=== PATIENT | female | born 1940 | race Asian ===

== ENCOUNTER 2017-06-26 06:56 | Emergency (ER) | payer MEDICARE, OTHER ==
[~2017-06-26] VITALS: Ht 162.6 cm; Wt 86.4 kg
[~2017-06-26 06:56] MED LIST: ALBU8HFA IH; ASPI-556 PO; AUD NEB; INSLAN SQ; MECL-111 PO; METO50 PO; MULT-950 PO; NATE120 PO; NIFE10 PO; RANI150T7 PO; TELM40 PO
[2017-06-26] MEDS ORDERED: IPRATROPIUM BROMIDE 0.5 MG/2.5 ML NEB SOLUTION NEB ONE (07:00)
[2017-06-26] MEDS ORDERED: ALBUTEROL SULFATE 2.5 MG/0.5 ML NEB SOLUTION NEB ONE (07:00)
[2017-06-26 07:07] LABS: GLUCOSE,POINT OF CARE 65 MG/DL (70-110)
[2017-06-26] MEDS ORDERED: RAPID SEQUENCE KIT [RSI] 1 EACH KIT ONE (07:39)
[2017-06-26] MEDS ORDERED: SUCCINYLCHOLINE CHLORIDE 20 MG/ML 10 ML VIAL ONE (07:39)
[2017-06-26] MEDS ORDERED: PROPOFOL 1000 MG/ISO-OSM 100 ML IV ONE (08:31)
[2017-06-26 08:59] LABS: BASOPHILS % (AUTO) 0.7 % (0.0-2.0); HEMATOCRIT 31.5 % (36-46); HEMOGLOBIN 10.3 g/dL (12.0-16.0); LYMPHOCYTES # (AUTO) 0.6 K/uL (1.0-4.8); LYMPHOCYTES % (AUTO) 9.4 % (22.0-44.0); MEAN CORPUSCULAR HEMOGLOBIN 28.3 pg (26.0-34.0); MEAN CORPUSCULAR HGB CONC 32.7 G/dL (31.0-37.0); MEAN CORPUSCULAR VOLUME 87 fL (80-100); MONOCYTES # (AUTO) 0.7 K/uL (0.1-1.0); MONOCYTES % (AUTO) 10.7 % (2.0-9.0); NEUTROPHILS # (AUTO) 4.5 K/uL (1.8-7.7); NEUTROPHILS % (AUTO) 72.2 % (40.0-70.0); PLATELET COUNT (AUTO) 251 K/uL (150-450); RED BLOOD CELL COUNT(AUTO) 3.64 MIL/uL (4.00-5.20); RED CELL DISTRIBUTION WIDTH 16.9 % (11.5-14.5)
[2017-06-26 09:11] LABS: CALCIUM, TOTAL 9.1 mg/dL (8.8-10.5); CREATININE 1.39 mg/dL (0.60-1.30); POTASSIUM 4.6 mmol/L (3.5-5.1)
[2017-06-26 09:18] LABS: ALBUMIN 3.2 g/dL (3.4-5.0); BILIRUBIN,TOTAL 0.6 mg/dL (0.1-1.0)
[2017-06-26 10:13] LABS: GLUCOSE,POINT OF CARE 108 MG/DL (70-110)
[2017-06-26] MEDS ORDERED: HYDROCHLOROTHIAZIDE 25 MG TABLET PO ONE (10:15)
[2017-06-26 10:58] VITALS: BP 147/54
== END 2017-06-26 11:43 | disposition home or self-care (01) ==
LOC: EMS 06:56
DX: I11.0 Hypertensive heart disease with heart failure (principal); I50.9 Heart failure, unspecified; E11.9 Type 2 diabetes mellitus without complications; E78.00 Pure hypercholesterolemia, unspecified; J45.909 Unspecified asthma, uncomplicated; Z79.4 Long term (current) use of insulin; Z88.8 Allergy status to other drugs, medicaments and biological substances
CPT/HCPCS: 36415; 71045; 80053; 82962; 83880; 84484; 85025; 93005; 94640; 99285; J0330; J2704

== ENCOUNTER 2017-07-09 07:22 | Emergency (ER) | payer MEDICARE, OTHER ==
[~2017-07-09] VITALS: Ht 162.6 cm; Wt 72.7 kg
[2017-07-09 07:37] LABS: GLUCOSE,POINT OF CARE 122 MG/DL (70-110)
[2017-07-09] MEDS ORDERED: ACETAMINOPHEN 500 MG TABLET PO ONE (08:00)
[2017-07-09 08:28] VITALS: BP 156/105
== END 2017-07-09 09:11 | disposition home or self-care (01) ==
LOC: EMS 07:23
DX: R51 Headache (principal); J45.909 Unspecified asthma, uncomplicated; E11.9 Type 2 diabetes mellitus without complications; E78.00 Pure hypercholesterolemia, unspecified; I10 Essential (primary) hypertension; Z79.4 Long term (current) use of insulin; Z88.8 Allergy status to other drugs, medicaments and biological substances; Z79.82 Long term (current) use of aspirin
CPT/HCPCS: 70450; 82962; 99284

== ENCOUNTER 2017-08-05 08:28 | Inpatient (IN) | payer MEDICARE, OTHER ==
[~2017-08-05] VITALS: Ht 162.6 cm; Wt 93.7 kg
[2017-08-05] MEDS ORDERED: NITROGLYCERIN 0.4 MG SUBLINGUAL TABLET #25 SL ONE (08:45)
[2017-08-05] MEDS ORDERED: ASPIRIN 81 MG CHEWABLE TABLET PO ONE (08:45)
[2017-08-05] MEDS ORDERED: NITROGLYCERIN 2% (1 GM=INCH) PACKET TP ONE (08:45)
[2017-08-05 08:53] LABS: GLUCOSE,POINT OF CARE 192 MG/DL (70-110)
[2017-08-05] MEDS ORDERED: IPRA3AMP4 NEB (08:57)
[2017-08-05] MEDS ORDERED: INSULIN ASPART SQ (08:57)
[2017-08-05] MEDS ORDERED: GABA-529 PO (08:57)
[2017-08-05] MEDS ORDERED: CLON-570 PO (08:57)
[2017-08-05] MEDS ORDERED: INSNOV SQ (08:57)
[2017-08-05] MEDS ORDERED: KDUR10 PO (08:57)
[2017-08-05] MEDS ORDERED: FURO20 PO (08:57)
[2017-08-05] MEDS ORDERED: NYST30CR9 TP (08:57)
[2017-08-05] MEDS ORDERED: ALBU90AE PO (08:57)
[2017-08-05] MEDS ORDERED: NTP TD (08:57)
[2017-08-05] MEDS ORDERED: BUDE1AMP2 PO (08:57)
[2017-08-05] MEDS ORDERED: METO50 PO (08:57)
[2017-08-05] MEDS ORDERED: CALC-1085 PO (08:57)
[2017-08-05] MEDS ORDERED: [UNRECOGNIZED DRUG - CODE] IV (08:57)
[2017-08-05 09:24] LABS: BASOPHILS % (AUTO) 0.9 % (0.0-2.0); EOSINOPHILS % (AUTO) 5.3 % (1.0-6.0); HEMATOCRIT 24.8 % (36-46); HEMOGLOBIN 8.6 g/dL (12.0-16.0); LYMPHOCYTES # (AUTO) 0.4 K/uL (1.0-4.8); LYMPHOCYTES % (AUTO) 8.1 % (22.0-44.0); MEAN CORPUSCULAR HEMOGLOBIN 30.3 pg (26.0-34.0); MEAN CORPUSCULAR HGB CONC 34.7 G/dL (31.0-37.0); MEAN CORPUSCULAR VOLUME 87 fL (80-100); MONOCYTES # (AUTO) 0.7 K/uL (0.1-1.0); MONOCYTES % (AUTO) 13.1 % (2.0-9.0); NEUTROPHILS # (AUTO) 3.8 K/uL (1.8-7.7); NEUTROPHILS % (AUTO) 72.6 % (40.0-70.0); PLATELET COUNT (AUTO) 359 K/uL (150-450); RED BLOOD CELL COUNT(AUTO) 2.84 MIL/uL (4.00-5.20); RED CELL DISTRIBUTION WIDTH 16.4 % (11.5-14.5)
[2017-08-05 09:26] LABS: PROTHROMBIN TIME 10.7 SEC (9.4-11.6)
[2017-08-05 09:29] LABS: ANION GAP 7 mmol/L (8-16); CALCIUM, TOTAL 8.4 mg/dL (8.8-10.5); CARBON DIOXIDE 29 mmol/L (22-29); CHLORIDE 104 mmol/L (98-107); CREATININE 1.55 mg/dL (0.60-1.30); GLOMERULAR FILTR. RATE CALC 33 mL/min (>60); GLUCOSE,RANDOM 209 mg/dL (70-110); POTASSIUM 3.6 mmol/L (3.5-5.1); SODIUM SERUM 140 mmol/L (136-145); UREA NITROGEN, BLOOD 15 mg/dL (7-18)
[2017-08-05 09:35] LABS: ALANINE AMINOTRANSFERASE 22 U/L (12-78); ALBUMIN 2.4 g/dL (3.4-5.0); ALKALINE PHOSPHATASE 73 U/L (46-116); ASPARTATE AMINOTRANSFERASE 25 U/L (15-37); BILIRUBIN,TOTAL 0.7 mg/dL (0.1-1.0); CREATINE KINASE, TOTAL 59 U/L (26-192); TOTAL PROTEIN, SERUM 5.6 g/dL (6.4-8.2)
[2017-08-05 09:47] LABS: B-TYPE NATRIURETIC PEPTIDE 977 pg/mL (0-100)
[2017-08-05] MEDS ORDERED: ACYCLOVIR SODIUM IV SCH (10:30)
[2017-08-05] MEDS ORDERED: MAGNESIUM HYDROXIDE SUSPENSION 30 ML UDCUP PO PRN (10:30)
[2017-08-05] MEDS ORDERED: IPRATROPIUM BROMIDE 0.5 MG/2.5 ML NEB SOLUTION NEB SCH (10:30)
[2017-08-05] MEDS ORDERED: BISACODYL 10 MG RECTAL RECTAL SUPPOSITORY PR PRN (10:30)
[2017-08-05] MEDS ORDERED: DEXTROSE 50%-WATER 25 GM/50 ML SYRINGE IVP PRN (10:30)
[2017-08-05] MEDS ORDERED: ZOLPIDEM TARTRATE 5 MG TABLET PO PRN (10:30)
[2017-08-05] MEDS ORDERED: ALBUTEROL SULFATE 2.5 MG/0.5 ML NEB SOLUTION NEB SCH (10:30)
[2017-08-05 10:47] LABS: APPEARANCE,URINE TURBID (CLEAR); BILIRUBIN,URINE NEGATIVE (NEGATIVE); GLUCOSE, URINE (UA) NEGATIVE (NEGATIVE); KETONES,URINE NEGATIVE (NEGATIVE); LEUKOCYTE ESTERASE ,URINE LARGE (NEGATIVE); NITRATE,URINE NEGATIVE (NEGATIVE); OCCULT BLOOD,URINE MODERATE (NEGATIVE); PH,URINE 5.5 (5.0-8.0); PROTEIN,URINE POS 1+ (NEGATIVE); UROBILINOGEN,URINE 0.2 mg/dL (<=1.0)
[2017-08-05 10:57] LABS: BACTERIA,URINE Many /HPF (None Seen); RBC,URINE 0-2 /HPF (0-2); SQUAMOUS EPITHELIAL CELL,UR Few /LPF (None Seen); WBC,URINE >100 /HPF (0-5)
[2017-08-05] MEDS ORDERED: CloNIDine HCL 0.1 MG TABLET PO PRN (11:00)
[2017-08-05] MEDS ORDERED: FUROSEMIDE 40 MG/4 ML VIAL IVP ONE (11:00)
[2017-08-05] MEDS: METOPROLOL TARTRATE 25 MG TABLET PO SCH ×2 (12:29→17:44)
[2017-08-05] MEDS: NITROGLYCERIN 2% (1 GM=INCH) PACKET TP SCH ×2 (12:29→17:44)
[2017-08-05] MEDS: HEPARIN SODIUM,PORCINE 5,000 UNITS/ML VIAL SQ SCH ×2 (12:30→20:22)
[2017-08-05] MEDS ORDERED: DENTURE ADHESIVE 68 GM CREAM DT PRN (12:30)
[2017-08-05] MEDS: INSULIN LISPRO 100 UNITS/ML SQ PRN (12:35)
[2017-08-05] MEDS: ACYCLOVIR IV SCH ×2 (12:43→20:21)
[2017-08-05] MEDS: ACETAMINOPHEN 325 MG TABLET PO PRN ×2 (12:43→20:21)
[2017-08-05] MEDS: WATER IV SCH ×2 (12:43→20:21)
[2017-08-05] MEDS: DEXTROSE 5% IV SCH ×2 (12:43→20:21)
[2017-08-05] MEDS ORDERED: SODIUM CHLORIDE 0.9% 250 ML IV ONE (12:47)
[2017-08-05 13:30] VITALS: BP 191/70
[2017-08-05] MEDS: ALBUTEROL SULFATE 2.5 MG/0.5 ML NEB SOLUTION NEB SCH ×2 (14:05→21:09)
[2017-08-05] MEDS: IPRATROPIUM BROMIDE 0.5 MG/2.5 ML NEB SOLUTION NEB SCH ×2 (14:05→20:59)
[2017-08-05] MEDS: GABAPENTIN 100 MG CAPSULE PO SCH ×2 (16:00→20:21)
[2017-08-05 16:16] VITALS: BP 175/74
[2017-08-05 17:00] LABS: CREATINE KINASE, TOTAL 58 U/L (26-192)
[2017-08-05] MEDS: CefTRIAXone SODIUM 1 GM in DEXTROSE 5%-WATER 10 ML IV SCH (17:44)
[2017-08-05 19:44] VITALS: BP 162/63
[2017-08-05] MEDS: NYSTATIN 30 GM CREAM TP SCH (20:23)
[2017-08-05 21:54] VITALS: BP 158/66
[2017-08-05] MEDS: MORPHINE SULFATE 4 MG/ML SYRINGE IVP PRN (21:58)
[2017-08-06] VITALS (8 sets, daily range): BP systolic 151–198; BP diastolic 50–76
[2017-08-06] MEDS: METOPROLOL TARTRATE 25 MG TABLET PO SCH ×5 (00:01→23:50)
[2017-08-06] MEDS: NITROGLYCERIN 2% (1 GM=INCH) PACKET TP SCH ×5 (00:01→23:51)
[2017-08-06] MEDS: IPRATROPIUM BROMIDE 0.5 MG/2.5 ML NEB SOLUTION NEB SCH ×4 (02:05→19:52)
[2017-08-06] MEDS: ALBUTEROL SULFATE 2.5 MG/0.5 ML NEB SOLUTION NEB SCH ×4 (02:05→19:52)
[2017-08-06] MEDS: ACETAMINOPHEN 325 MG TABLET PO PRN ×3 (04:00→19:45)
[2017-08-06 06:02] LABS: BASOPHILS % (AUTO) 0.8 % (0.0-2.0); EOSINOPHILS % (AUTO) 5.5 % (1.0-6.0); HEMATOCRIT 23.6 % (36-46); HEMOGLOBIN 8.1 g/dL (12.0-16.0); LYMPHOCYTES # (AUTO) 0.7 K/uL (1.0-4.8); LYMPHOCYTES % (AUTO) 13.8 % (22.0-44.0); MEAN CORPUSCULAR HEMOGLOBIN 29.9 pg (26.0-34.0); MEAN CORPUSCULAR HGB CONC 34.2 G/dL (31.0-37.0); MEAN CORPUSCULAR VOLUME 87 fL (80-100); MONOCYTES # (AUTO) 0.7 K/uL (0.1-1.0); NEUTROPHILS # (AUTO) 3.5 K/uL (1.8-7.7); NEUTROPHILS % (AUTO) 66.9 % (40.0-70.0); PLATELET COUNT (AUTO) 345 K/uL (150-450); RED BLOOD CELL COUNT(AUTO) 2.71 MIL/uL (4.00-5.20); RED CELL DISTRIBUTION WIDTH 16.3 % (11.5-14.5)
[2017-08-06 06:09] LABS: HEMOGLOBIN A1C 7.6 % (4.5-6.2)
[2017-08-06] MEDS: DEXTRAN 70 0.1%/HYPROMELL 0.3% 0.9 ML OPHTHALMIC SOLUTION [PF] OD SCH ×5 (06:10→23:50)
[2017-08-06 06:22] LABS: ANION GAP 0 mmol/L (8-16); CARBON DIOXIDE 36 mmol/L (22-29); CHLORIDE 103 mmol/L (98-107); CHOLESTEROL 149 mg/dL (131-200); CREATINE KINASE, TOTAL 48 U/L (26-192); CREATININE 1.29 mg/dL (0.60-1.30); FREE T4 (FREE THYROXINE) 1.03 ng/dL (0.76-1.46); GLOMERULAR FILTR. RATE CALC 40 mL/min (>60); GLUCOSE,RANDOM 136 mg/dL (70-110); HDL CHOLESTEROL 50 mg/dL (40-60); LDL CHOL (CALC.) 80 mg/dL (0-130); POTASSIUM 3.5 mmol/L (3.5-5.1); SODIUM SERUM 139 mmol/L (136-145); THYROID STIMULATING HORMONE 2.11 uIU/mL (0.36-3.74); TRIGLYCERIDES 94 mg/dL (15-150); UREA NITROGEN, BLOOD 14 mg/dL (7-18)
[2017-08-06 07:16] LABS: % IRON SATURATION 25.3 % (22-44); IRON, SERUM 35 mcg/dL (50-175); TOTAL IRON BINDING CAPACITY 138 mcg/dL (250-450)
[2017-08-06] MEDS ORDERED: MAGNESIUM SULFATE 4 GM/WATER 100 ML IV ONE (08:30)
[2017-08-06] MEDS: NYSTATIN 30 GM CREAM TP SCH ×2 (08:41→21:04)
[2017-08-06] MEDS: FUROSEMIDE 40 MG/4 ML VIAL IVP SCH ×2 (08:41→21:03)
[2017-08-06] MEDS: HEPARIN SODIUM,PORCINE 5,000 UNITS/ML VIAL SQ SCH ×2 (08:41→21:03)
[2017-08-06] MEDS: GABAPENTIN 100 MG CAPSULE PO SCH ×2 (08:42→17:25)
[2017-08-06] MEDS: ASPIRIN 81 MG EC TABLET PO SCH (08:42)
[2017-08-06] MEDS ORDERED: FUROSEMIDE 20 MG/2 ML VIAL IVP SCH (09:00)
[2017-08-06] MEDS ORDERED: LISINOPRIL 5 MG TABLET PO SCH (09:00)
[2017-08-06] MEDS ORDERED: LABETALOL HCL 5 MG/ML 20 ML VIAL IVP PRN ×2 (09:15→19:45)
[2017-08-06] MEDS ORDERED: HydrALAZINE HCL 20 MG/ML VIAL IVP PRN (09:15)
[2017-08-06] MEDS: INSULIN LISPRO 100 UNITS/ML SQ PRN ×3 (11:37→21:11)
[2017-08-06 13:23] LABS: GLUCOMETER DEV NAME(LOC) 5S 2Q; GLUCOSE,POINT OF CARE 144 MG/DL (70-110)
[2017-08-06 13:23] LABS: GLUCOMETER DEV NAME(LOC) 5S 2Q; GLUCOSE,POINT OF CARE 195 MG/DL (70-110)
[2017-08-06] MEDS: MORPHINE SULFATE 4 MG/ML SYRINGE IVP PRN ×3 (15:04→23:52)
[2017-08-06] MEDS: CefTRIAXone SODIUM 1 GM in DEXTROSE 5%-WATER 10 ML IV SCH (17:25)
[2017-08-06] MEDS: ONDANSETRON HCL 4 MG/2 ML VIAL IVP PRN (17:26)
[2017-08-06] MEDS: GABAPENTIN 300 MG CAPSULE PO SCH (21:04)
[2017-08-07] MEDS: IPRATROPIUM BROMIDE 0.5 MG/2.5 ML NEB SOLUTION NEB SCH ×4 (02:40→19:39)
[2017-08-07] MEDS: ALBUTEROL SULFATE 2.5 MG/0.5 ML NEB SOLUTION NEB SCH ×4 (02:40→19:39)
[2017-08-07 04:43] VITALS: BP 166/68
[2017-08-07] MEDS: MORPHINE SULFATE 4 MG/ML SYRINGE IVP PRN ×5 (04:53→23:47)
[2017-08-07] MEDS: METOPROLOL TARTRATE 25 MG TABLET PO SCH ×4 (06:20→23:47)
[2017-08-07] MEDS: DEXTRAN 70 0.1%/HYPROMELL 0.3% 0.9 ML OPHTHALMIC SOLUTION [PF] OD SCH ×4 (06:20→23:47)
[2017-08-07] MEDS: NITROGLYCERIN 2% (1 GM=INCH) PACKET TP SCH ×4 (06:20→23:47)
[2017-08-07 06:28] LABS: CALCIUM, TOTAL 7.7 mg/dL (8.8-10.5); CREATININE 1.41 mg/dL (0.60-1.30); MAGNESIUM 1.4 mg/dL (1.80-2.40); POTASSIUM 3.1 mmol/L (3.5-5.1)
[2017-08-07 07:12] VITALS: BP 153/54
[2017-08-07 07:18] LABS: BASOPHILS % (AUTO) 0.8 % (0.0-2.0); EOSINOPHILS % (AUTO) 4.5 % (1.0-6.0); HEMOGLOBIN 8.3 g/dL (12.0-16.0); LYMPHOCYTES # (AUTO) 0.7 K/uL (1.0-4.8); LYMPHOCYTES % (AUTO) 12.9 % (22.0-44.0); MEAN CORPUSCULAR HEMOGLOBIN 30.6 pg (26.0-34.0); MEAN CORPUSCULAR HGB CONC 34.8 G/dL (31.0-37.0); MEAN CORPUSCULAR VOLUME 88 fL (80-100); MONOCYTES # (AUTO) 0.8 K/uL (0.1-1.0); MONOCYTES % (AUTO) 13.4 % (2.0-9.0); NEUTROPHILS # (AUTO) 3.9 K/uL (1.8-7.7); NEUTROPHILS % (AUTO) 68.4 % (40.0-70.0); PLATELET COUNT (AUTO) 326 K/uL (150-450); RED BLOOD CELL COUNT(AUTO) 2.72 MIL/uL (4.00-5.20); RED CELL DISTRIBUTION WIDTH 16.2 % (11.5-14.5)
[2017-08-07] MEDS: LISINOPRIL 20 MG TABLET PO SCH (07:49)
[2017-08-07] MEDS: FUROSEMIDE 40 MG/4 ML VIAL IVP SCH (07:49)
[2017-08-07] MEDS: HEPARIN SODIUM,PORCINE 5,000 UNITS/ML VIAL SQ SCH ×2 (07:49→20:58)
[2017-08-07] MEDS: ASPIRIN 81 MG EC TABLET PO SCH (07:49)
[2017-08-07] MEDS: GABAPENTIN 300 MG CAPSULE PO SCH ×3 (07:49→20:58)
[2017-08-07] MEDS: NYSTATIN 30 GM CREAM TP SCH ×2 (09:03→20:58)
[2017-08-07] MEDS: MECLIZINE HCL 25 MG TABLET PO PRN ×2 (09:29→15:35)
[2017-08-07] MEDS ORDERED: POTASSIUM CHLORIDE 20 MEQ ER TABLET PO ONE (10:15)
[2017-08-07] MEDS ORDERED: MAGNESIUM SULFATE 4 GM/WATER 100 ML IV ONE (10:15)
[2017-08-07] MEDS: ACETAMINOPHEN 325 MG TABLET PO PRN ×2 (11:12→21:01)
[2017-08-07] MEDS ORDERED: SODIUM CHLORIDE 0.9% 250 ML IV ONE (11:20)
[2017-08-07 11:45] VITALS: BP 155/56
[2017-08-07] MEDS: INSULIN LISPRO 100 UNITS/ML SQ PRN (11:50)
[2017-08-07 13:53] LABS: FOLATE SERUM 13.3 ng/mL (5.4-)
[2017-08-07] MEDS: CefTRIAXone SODIUM 1 GM in DEXTROSE 5%-WATER 10 ML IV SCH (15:28)
[2017-08-07 15:51] VITALS: BP 158/58
[2017-08-07 19:49] VITALS: BP 156/58
[2017-08-07 20:39] LABS: GLUCOMETER DEV NAME(LOC) 5S 1M; GLUCOSE,POINT OF CARE 151 MG/DL (70-110)
[2017-08-07 20:39] LABS: GLUCOMETER DEV NAME(LOC) 5S 1M; GLUCOSE,POINT OF CARE 139 MG/DL (70-110)
[2017-08-07 20:39] LABS: GLUCOMETER DEV NAME(LOC) 5S 1M; GLUCOSE,POINT OF CARE 131 MG/DL (70-110)
[2017-08-07 20:39] LABS: GLUCOMETER DEV NAME(LOC) 5S 1M; GLUCOSE,POINT OF CARE 181 MG/DL (70-110)
[2017-08-07 20:43] LABS: GLUCOMETER DEV NAME(LOC) 5S 1M; GLUCOSE,POINT OF CARE 165 MG/DL (70-110)
[2017-08-07 20:43] LABS: GLUCOMETER DEV NAME(LOC) 5S 2Q; GLUCOSE,POINT OF CARE 138 MG/DL (70-110)
[2017-08-07 20:43] LABS: GLUCOMETER DEV NAME(LOC) 5S 2Q; GLUCOSE,POINT OF CARE 125 MG/DL (70-110)
[2017-08-07 20:43] LABS: GLUCOMETER DEV NAME(LOC) 5S 2Q; GLUCOSE,POINT OF CARE 164 MG/DL (70-110)
[2017-08-07 20:44] LABS: GLUCOMETER DEV NAME(LOC) 5S 1M; GLUCOSE,POINT OF CARE 142 MG/DL (70-110)
[2017-08-07] MEDS: DOXYCYCLINE HYCLATE 100 MG CAPSULE PO SCH (20:58)
[2017-08-07 23:43] VITALS: BP 158/54
[2017-08-08] MEDS: ALBUTEROL SULFATE 2.5 MG/0.5 ML NEB SOLUTION NEB SCH ×4 (02:17→20:03)
[2017-08-08] MEDS: IPRATROPIUM BROMIDE 0.5 MG/2.5 ML NEB SOLUTION NEB SCH ×4 (02:17→20:03)
[2017-08-08 05:08] VITALS: BP 158/59
[2017-08-08] MEDS: METOPROLOL TARTRATE 25 MG TABLET PO SCH ×4 (05:34→23:51)
[2017-08-08] MEDS: NITROGLYCERIN 2% (1 GM=INCH) PACKET TP SCH ×4 (05:34→23:51)
[2017-08-08] MEDS: DEXTRAN 70 0.1%/HYPROMELL 0.3% 0.9 ML OPHTHALMIC SOLUTION [PF] OD SCH ×4 (05:34→23:51)
[2017-08-08] MEDS: INSULIN LISPRO 100 UNITS/ML SQ PRN ×2 (06:05→17:54)
[2017-08-08 06:24] LABS: BASOPHILS % (AUTO) 0.6 % (0.0-2.0); EOSINOPHILS % (AUTO) 3.2 % (1.0-6.0); HEMATOCRIT 23.6 % (36-46); LYMPHOCYTES # (AUTO) 0.8 K/uL (1.0-4.8); LYMPHOCYTES % (AUTO) 12.4 % (22.0-44.0); MEAN CORPUSCULAR HEMOGLOBIN 29.9 pg (26.0-34.0); MEAN CORPUSCULAR HGB CONC 33.8 G/dL (31.0-37.0); MEAN CORPUSCULAR VOLUME 88 fL (80-100); MONOCYTES # (AUTO) 0.9 K/uL (0.1-1.0); NEUTROPHILS # (AUTO) 4.6 K/uL (1.8-7.7); NEUTROPHILS % (AUTO) 69.8 % (40.0-70.0); PLATELET COUNT (AUTO) 327 K/uL (150-450); RED BLOOD CELL COUNT(AUTO) 2.67 MIL/uL (4.00-5.20); RED CELL DISTRIBUTION WIDTH 16.1 % (11.5-14.5)
[2017-08-08 06:42] LABS: CALCIUM, TOTAL 7.7 mg/dL (8.8-10.5); CREATININE 1.48 mg/dL (0.60-1.30); POTASSIUM 3.4 mmol/L (3.5-5.1)
[2017-08-08 07:15] VITALS: BP_SYST 155; BP_SYST 49; BP_DIAS 49
[2017-08-08] MEDS: HEPARIN SODIUM,PORCINE 5,000 UNITS/ML VIAL SQ SCH ×2 (07:30→19:50)
[2017-08-08] MEDS: MORPHINE SULFATE 4 MG/ML SYRINGE IVP PRN ×2 (07:31→22:15)
[2017-08-08] MEDS: ASPIRIN 81 MG EC TABLET PO SCH (07:31)
[2017-08-08] MEDS: GABAPENTIN 300 MG CAPSULE PO SCH ×3 (07:31→19:50)
[2017-08-08] MEDS: LISINOPRIL 20 MG TABLET PO SCH (07:31)
[2017-08-08] MEDS: NYSTATIN 30 GM CREAM TP SCH ×2 (07:32→19:50)
[2017-08-08 07:48] LABS: MAGNESIUM 2.1 mg/dL (1.80-2.40)
[2017-08-08] MEDS: MECLIZINE HCL 25 MG TABLET PO PRN (08:40)
[2017-08-08] MEDS: DOXYCYCLINE HYCLATE 100 MG CAPSULE PO SCH ×2 (08:40→19:50)
[2017-08-08 11:58] VITALS: BP 146/58
[2017-08-08 12:24] LABS: GLUCOMETER DEV NAME(LOC) 5S 2Q; GLUCOSE,POINT OF CARE 143 MG/DL (70-110)
[2017-08-08 12:24] LABS: GLUCOMETER DEV NAME(LOC) 5S 2Q; GLUCOSE,POINT OF CARE 173 MG/DL (70-110)
[2017-08-08] MEDS ORDERED: POTASSIUM CHLORIDE 20 MEQ ER TABLET PO ONE (13:00)
[2017-08-08 15:40] VITALS: BP 142/56
[2017-08-08 17:03] LABS: GLUCOMETER DEV NAME(LOC) 5S 1M; GLUCOSE,POINT OF CARE 165 MG/DL (70-110)
[2017-08-08 17:03] LABS: GLUCOMETER DEV NAME(LOC) 5S 1M; GLUCOSE,POINT OF CARE 137 MG/DL (70-110)
[2017-08-08] MEDS: ACETAMINOPHEN 325 MG TABLET PO PRN ×2 (17:26→19:50)
[2017-08-08 19:58] VITALS: BP 156/63
[2017-08-08] MEDS: ONDANSETRON HCL 4 MG/2 ML VIAL IVP PRN (22:14)
[2017-08-08 23:49] VITALS: BP 160/51
[2017-08-09] MEDS: ALBUTEROL SULFATE 2.5 MG/0.5 ML NEB SOLUTION NEB SCH ×3 (02:01→13:22)
[2017-08-09] MEDS: IPRATROPIUM BROMIDE 0.5 MG/2.5 ML NEB SOLUTION NEB SCH ×3 (02:01→13:22)
[2017-08-09 02:10] LABS: GLUCOMETER DEV NAME(LOC) 5S 2Q; GLUCOSE,POINT OF CARE 153 MG/DL (70-110)
[2017-08-09 02:10] LABS: GLUCOMETER DEV NAME(LOC) 5S 1M; GLUCOSE,POINT OF CARE 146 MG/DL (70-110)
[2017-08-09 02:10] LABS: GLUCOMETER DEV NAME(LOC) 5S 1M; GLUCOSE,POINT OF CARE 125 MG/DL (70-110)
[2017-08-09] MEDS: ACETAMINOPHEN 325 MG TABLET PO PRN ×3 (04:15→12:31)
[2017-08-09 04:33] VITALS: BP 158/68
[2017-08-09] MEDS: METOPROLOL TARTRATE 25 MG TABLET PO SCH ×3 (05:48→15:48)
[2017-08-09] MEDS: DEXTRAN 70 0.1%/HYPROMELL 0.3% 0.9 ML OPHTHALMIC SOLUTION [PF] OD SCH ×2 (05:48→12:06)
[2017-08-09] MEDS: NITROGLYCERIN 2% (1 GM=INCH) PACKET TP SCH ×2 (05:49→12:05)
[2017-08-09] MEDS: INSULIN LISPRO 100 UNITS/ML SQ PRN ×2 (06:12→12:15)
[2017-08-09 07:08] VITALS: BP 163/65
[2017-08-09 08:49] LABS: CALCIUM, TOTAL 7.7 mg/dL (8.8-10.5); CREATININE 1.49 mg/dL (0.60-1.30); POTASSIUM 3.7 mmol/L (3.5-5.1)
[2017-08-09 08:53] LABS: MAGNESIUM 1.9 mg/dL (1.80-2.40); PHOSPHORUS 2.6 mg/dL (2.5-4.9)
[2017-08-09] MEDS: HEPARIN SODIUM,PORCINE 5,000 UNITS/ML VIAL SQ SCH (08:59)
[2017-08-09] MEDS: LISINOPRIL 20 MG TABLET PO SCH (09:00)
[2017-08-09] MEDS: GABAPENTIN 300 MG CAPSULE PO SCH ×2 (09:00→15:48)
[2017-08-09] MEDS: ASPIRIN 81 MG EC TABLET PO SCH (09:00)
[2017-08-09] MEDS: DOXYCYCLINE HYCLATE 100 MG CAPSULE PO SCH (09:00)
[2017-08-09] MEDS: NYSTATIN 30 GM CREAM TP SCH (09:01)
[2017-08-09 09:57] VITALS: BP 186/68
[2017-08-09 11:42] VITALS: BP 160/70
[2017-08-09] MEDS ORDERED: FUROSEMIDE 40 MG TABLET PO SCH (12:30)
[2017-08-09 14:28] LABS: GLUCOMETER DEV NAME(LOC) 5S 2Q; GLUCOSE,POINT OF CARE 175 MG/DL (70-110)
[2017-08-09 14:28] LABS: GLUCOMETER DEV NAME(LOC) 5S 2Q; GLUCOSE,POINT OF CARE 168 MG/DL (70-110)
[2017-08-09 15:39] VITALS: BP 176/66
[2017-08-09] MEDS ORDERED: FURO-151 PO (16:41)
[2017-08-09] MEDS ORDERED: DOXY100C PO (16:42)
== END 2017-08-09 16:40 | DRG 291 ==
LOC: EMS 08:29 → 5S 10:50
PROVIDERS: ADMIT Internal Medicine Geriatric Medicine; ATTEND Internal Medicine Geriatric Medicine
DX: I13.0 Hypertensive heart and chronic kidney disease with heart failure and stage 1 through stage 4 chronic kidney disease, or unspecified chronic kidney disease (principal); I50.31 Acute diastolic (congestive) heart failure; N17.9 Acute kidney failure, unspecified; E87.3 Alkalosis; E11.22 Type 2 diabetes mellitus with diabetic chronic kidney disease; B02.0 Zoster encephalitis; N39.0 Urinary tract infection, site not specified; B02.30 Zoster ocular disease, unspecified; D63.8 Anemia in other chronic diseases classified elsewhere; B96.89 Other specified bacterial agents as the cause of diseases classified elsewhere; E78.5 Hyperlipidemia, unspecified; K21.9 Gastro-esophageal reflux disease without esophagitis; R91.1 Solitary pulmonary nodule; N18.9 Chronic kidney disease, unspecified; E78.00 Pure hypercholesterolemia, unspecified; G43.909 Migraine, unspecified, not intractable, without status migrainosus; J45.909 Unspecified asthma, uncomplicated; Z90.49 Acquired absence of other specified parts of digestive tract; Z88.8 Allergy status to other drugs, medicaments and biological substances; Z88.1 Allergy status to other antibiotic agents; Z79.4 Long term (current) use of insulin; Z79.899 Other long term (current) drug therapy; Z86.19 Personal history of other infectious and parasitic diseases; Z82.49 Family history of ischemic heart disease and other diseases of the circulatory system
CPT/HCPCS: 51702; 71250; 76770; 82306; 82570; 82607; 82728; 82746; 83036; 83540; 83550; 83735; 83970; 84100; 84132; 84156; 84439; 84443; 87040; 87081; 87086; 93005; 93306; 94640; 96374; 97110; 97161; 97166; 97535; 99291; J0133; J0360; J0696; J1644; J1940; J2270; J2405; J3475; J3490; J7050; J7060

== ENCOUNTER 2017-10-07 18:45 | Emergency (ER) | payer MEDICARE, OTHER ==
[~2017-10-07] VITALS: Ht 160 cm; Wt 74.0 kg
[~2017-10-07 18:45] MED LIST changes: -ALBU8HFA IH; +ALBU90AE PO; -ASPI-556 PO; -AUD NEB; +BUDE1AMP2 PO; +CALC-1085 PO; +CLON-570 PO; +DOXY100C PO; +FURO-151 PO; +FURO20 PO; +GABA-529 PO; -INSLAN SQ; +INSNOV SQ; +INSULIN ASPART SQ; +IPRA3AMP23 NEB; +KDUR10 PO; -MECL-111 PO; -MULT-950 PO; -NATE120 PO; -NIFE10 PO; +NTP TD; +NYST30CR9 TP; -RANI150T7 PO; -TELM40 PO; +[UNRECOGNIZED DRUG - CODE] IV
[2017-10-07 19:14] LABS: GLUCOSE,POINT OF CARE 202 MG/DL (70-110)
[2017-10-07] MEDS ORDERED: SODIUM CHLORIDE 0.9% 250 ML IRRIG SOLUTION BOTTLE IRRIG ONE (19:30)
[2017-10-07] MEDS ORDERED: PERTUSS(ACELL),DIPH,TET VAC/PF 0.5 ML VIAL IM ONE (19:30)
[2017-10-07] MEDS ORDERED: AMIT10TA6 PO (19:33)
[2017-10-07] MEDS ORDERED: ASPI81 PO (19:33)
[2017-10-07] MEDS ORDERED: INSU100V SQ (19:33)
[2017-10-07] MEDS ORDERED: LISI-618 PO (19:33)
[2017-10-07] MEDS ORDERED: INSLAN SQ (19:33)
[2017-10-07] MEDS ORDERED: ALPR0.255 PO (19:33)
[2017-10-07] MEDS ORDERED: NITR.4 SL (19:33)
[2017-10-07] MEDS ORDERED: AMIT25TA9 PO (19:42)
[2017-10-07] MEDS ORDERED: LIDOCAINE HCL 1% 20 ML VIAL INJ ONE (19:45)
[2017-10-07 20:12] LABS: BASOPHILS % (AUTO) 1.1 % (0.0-2.0); EOSINOPHILS % (AUTO) 5.9 % (1.0-6.0); HEMATOCRIT 36.1 % (36-46); MEAN CORPUSCULAR HEMOGLOBIN 30.5 pg (26.0-34.0); MEAN CORPUSCULAR HGB CONC 33.4 G/dL (31.0-37.0); MEAN CORPUSCULAR VOLUME 92 fL (80-100); MONOCYTES % (AUTO) 11.8 % (2.0-9.0); NEUTROPHILS # (AUTO) 6.2 K/uL (1.8-7.7); NEUTROPHILS % (AUTO) 70.2 % (40.0-70.0); PLATELET COUNT (AUTO) 351 K/uL (150-450); RED BLOOD CELL COUNT(AUTO) 3.94 MIL/uL (4.00-5.20); RED CELL DISTRIBUTION WIDTH 15.5 % (11.5-14.5)
[2017-10-07 20:19] LABS: CALCIUM, TOTAL 9.9 mg/dL (8.8-10.5); CREATININE 2.21 mg/dL (0.60-1.30)
[2017-10-07 20:24] LABS: ALBUMIN 3.5 g/dL (3.4-5.0); BILIRUBIN,TOTAL 0.8 mg/dL (0.1-1.0); TOTAL PROTEIN, SERUM 7.7 g/dL (6.4-8.2)
[2017-10-07 20:49] LABS: APPEARANCE,URINE CLOUDY (CLEAR); BILIRUBIN,URINE NEGATIVE (NEGATIVE); GLUCOSE, URINE (UA) NEGATIVE (NEGATIVE); KETONES,URINE NEGATIVE (NEGATIVE); LEUKOCYTE ESTERASE ,URINE NEGATIVE (NEGATIVE); NITRATE,URINE NEGATIVE (NEGATIVE); OCCULT BLOOD,URINE NEGATIVE (NEGATIVE); PROTEIN,URINE NEGATIVE (NEGATIVE); UROBILINOGEN,URINE 0.2 mg/dL (<=1.0)
[2017-10-07] MEDS ORDERED: SODIUM CHLORIDE 0.9% 500 ML IV ONE (21:15)
[2017-10-08 00:30] VITALS: BP 172/67
== END 2017-10-08 00:49 | disposition home or self-care (01) ==
LOC: EMS 18:46
DX: S01.511A Laceration without foreign body of lip, initial encounter (principal); S80.01XA Contusion of right knee, initial encounter; R42 Dizziness and giddiness; R55 Syncope and collapse; J45.909 Unspecified asthma, uncomplicated; I11.0 Hypertensive heart disease with heart failure; I50.9 Heart failure, unspecified; E11.9 Type 2 diabetes mellitus without complications; J44.9 Chronic obstructive pulmonary disease, unspecified; E78.00 Pure hypercholesterolemia, unspecified; Z88.8 Allergy status to other drugs, medicaments and biological substances; Z88.2 Allergy status to sulfonamides; Z88.1 Allergy status to other antibiotic agents; Z79.899 Other long term (current) drug therapy; Z79.4 Long term (current) use of insulin; W06.XXXA Fall from bed, initial encounter; Y93.89 Activity, other specified; Y92.89 Other specified places as the place of occurrence of the external cause; Y99.8 Other external cause status
CPT/HCPCS: 36415; 40650; 51701; 70450; 72125; 80053; 81003; 82962; 84484; 85025; 85610; 85730; 90471; 90715; 93005; 96360; 99285; J3490; J7040; 12013